=== PATIENT | female | born 1980 | race African-American/Black ===

== ENCOUNTER 2017-04-26 09:55 | Emergency (ER) | payer SELFPAY ==
[2017-04-26] MEDS ORDERED: Acetaminophen 500 MG TAB ONE (11:57)
[2017-04-26 12:25] LABS: Bilirubin Negative (Negative); Blood, Urine Negative (Negative); Clarity CLOUDY (Clear); Glucose, Urine (Dipstick) Negative (Negative); Leukocyte Negative (Negative); Nitrite Positive (Negative); Protein, Urine (Dipstick) Negative (Neg-Trace); Specific Gravity, Urine 1.025 (1.002-1.036); Urobilinogen 0.2 mg/dL (0.2-1.0)
[2017-04-26 12:26] LABS: Bacteria/HPF 4+ HPF (None Seen); Hyaline Casts/LPF 4-6 HYALINE CAST LPF (0-3 Hyaline); Pathc Cast-AUWi Flag 1.01 (0-2.49); RBC/HPF 0-3 HPF (0-3); WBC/HPF 0-3 HPF (0-3)
[2017-04-26 12:35] LABS: Pregnancy Test - Urine (BHCG) Negative (Negative); Pregu Control Background? CLEAR/WHITE (CLR/WHITE); Pregu Control Bar Appear? YES (CONTROL BAR); Specific Gravity 1.025 (1.002-1.036)
[2017-04-26 12:44] LABS: Renal Epithelial 0-3 HPF (0-3); Transitional Epithelial 0-3 HPF (0-3)
== END 2017-04-26 13:16 | disposition home or self-care (01) ==
LOC: ERS 09:55
DX: N39.0 Urinary tract infection, site not specified (principal); I10 Essential (primary) hypertension; K21.9 Gastro-esophageal reflux disease without esophagitis; Z87.891 Personal history of nicotine dependence; F32.9 Major depressive disorder, single episode, unspecified
CPT/HCPCS: 81003; 81015; 81025; 99283

== ENCOUNTER 2017-05-28 20:49 | Emergency (ER) | payer SELFPAY ==
[~2017-05-28 20:49] MED LIST: ISOVUE-370 76%-LOCM 1 ML ONE; Iopamidol 370 76% 50 ML VIAL FS ONE
[2017-05-28 21:33] LABS: Band 19 % (5-11); Hemoglobin 11.3 g/dL (12.0-16.0); Lymphocytes 13 % (21-51); MDiff Complete? YES; Mean Corpuscular HGB CONC 32.5 g/dL (32.0-36.0); Mean Corpuscular Hemoglobin 29.6 pg (27.0-31.0); Mean Corpuscular Volume 91.1 fl (81.0-99.0); Mean Platelet Volume 6.4 fL (7.4-10.4); Monocytes 5 % (0-10); Neutrophil 63 % (42-75); PLT Morphology Comment Appears Adequate; Platelet Count 233 thou/uL (130-400); RBC Distribution Width 12.4 % (11.5-14.5); Red Blood Cell (RBC) Count 3.81 mill/uL (4.20-5.40); White Blood Cell (WBC) Count 17.8 thou/uL (4.8-10.8)
--- NOTE | 2017-05-28 21:38 | RAD ---
CHEST ONE VIEW: HISTORY: Abdomen and chest pain. COMPARISON: 05/30/2012 and 11/26/2015 FINDINGS: Redemonstration of increased opacification in the right paratracheal region, similar to the previous examination. Stable configuration of the cardiac silhouette. Stable hyperinflation with what are presumed to be chronic changes. Possible right lower lobe infilt rate. No pneumothorax or osseous abnormalities. IMPRESSION: Possible right lower lobe infiltrate. Normal attenuation noted in the right paratracheal region otilia esponds to an enlarged esophagus, which has been demonstrated on a CT from 10/21/2013. POS: [facility]
[2017-05-28 21:40] LABS: ALT (SGPT) 16 U/L (8-55); AST (SGOT) 18 U/L (5-34); Albumin 3.8 g/dL (3.5-5.0); Alkaline Phosphatase 56 U/L (40-150); Anion Gap 11 mmol/L (10-20); BUN (Urea Nitrogen) 11 mg/dL (7.0-18.7); Bilirubin, Total 0.5 mg/dL (0.2-1.2); Calc. Creatinine Clearance 0 mL/min (70-130); Calcium 8.5 mg/dL (7.8-10.44); Carbon Dioxide 25 mmol/L (22-29); Chloride 106 mmol/L (98-107); Estimated GFR-MDRD Greater than 90; Globulin 3.7 g/dL (2.4-3.5); Glucose 96 mg/dL (70-105); Potassium 3.8 mmol/L (3.5-5.1); Protein, Total 7.5 g/dL (6.0-8.3); Sodium 138 mmol/L (136-145)
[2017-05-28 21:45] LABS: CKMB 0.8 ng/mL (0-6.6); Troponin I Less than 0.010 ng/mL (< 0.028)
[2017-05-28 23:15] LABS: BHCG - Serum Negative (NEGATIVE); Pregs Control Background? CLEAR/WHITE (CLR/WHITE); Pregs Control Bar Appear? YES (CONTROL BAR)
--- NOTE | 2017-05-29 | CT ---
ABDOMEN CT WITH CONTRAST: PELVIS CT WITH CONTRAST: HISTORY: Chest pain. Right upper quadrant pain. Elevated white blood cell count. COMPARISON: 03/19/2012 TECHNIQUE: An abdomen CT and a pelvis CT is performed with IV and oral contrast. Coronal reformatted images are submitted for interpretation. FINDINGS: ABDOMEN: Redemonstration of atelectasis adjacent to an extremely dilated descending thoracic aorta. Additional patchy interstitial opacities in the right lung base are present and are nonspecific. Th e possibility of an infiltrate is raised. Heart size is normal. No pericardial effusion. The visua lized aorta is unremarkable. Portal vein is patent. The liver, spleen, pancreas, and adrenal glands have appropriate enhancement. Symmetric enhancement of the kidneys. Bilaterally, no obstructive uropathy. Decreased intraabdominal fat limits evaluation for inflammatory change. No definite mesenteric mass, lymphadenopathy, free air, or free fluid. The gastric mucosa, the duodenum, and multiple normal caliber small bowel loops are noted. The ileocecal junction is normal. A partially visualized appendix is unremarkable. PELVIS: The uterus and adnexal structures are unremarkable. Possible left ovarian cyst. Pelvic ult rasound is clinically warranted. The urinary bladder is slightly prominent. Correlate for cystitis. A trace amount of fluid in the pelvis is suggested. No pelvic mass, lymphadenopathy, or free air. The previously noted ventral abdominal wall hernia is present, containing only mesenteric fat. No lytic or blastic lesions in the osseous structures. IMPRESSION: 1. Possible right lower lobe infiltrate. Continue surveillance. 2. Persistent dilatation of the descending thoracic aorta. 3. No evidence of bowel obstruction. 4. Suggestion of a partially visualized normal caliber appendix. 5. Umbilical hernia, containing mesenteric fat. 6. Prominent left ovary. Pelvic ultrasound, if clinically warranted. 7. Nonspecific mild urinary bladder mucosal prominence. POS: [facility]
[2017-05-29] MEDS ORDERED: Azithromycin 250 MG TAB ONE (00:14)
== END 2017-05-29 00:25 | disposition home or self-care (01) ==
LOC: ERS 20:49
DX: J18.9 Pneumonia, unspecified organism (principal); K22.8 Other specified diseases of esophagus; K43.9 Ventral hernia without obstruction or gangrene; I10 Essential (primary) hypertension; K21.9 Gastro-esophageal reflux disease without esophagitis; F17.210 Nicotine dependence, cigarettes, uncomplicated; F32.9 Major depressive disorder, single episode, unspecified
CPT/HCPCS: 71045; 74177; 80053; 82553; 83690; 84484; 84703; 85025; 93005

== ENCOUNTER 2017-11-10 18:53 | Emergency (ER) | payer SELFPAY ==
[~2017-11-10 18:53] MED LIST changes: -Iopamidol 370 76% 50 ML VIAL FS ONE
[2017-11-10 19:28] LABS: Bilirubin Negative (Negative); Blood, Urine Negative (Negative); Clarity CLEAR (Clear); Glucose, Urine (Dipstick) Negative (Negative); Leukocyte Negative (Negative); Nitrite Negative (Negative); Protein, Urine (Dipstick) Negative (Neg-Trace); Specific Gravity, Urine 1.009 (1.002-1.036)
[2017-11-10 19:32] LABS: Pregnancy Test - Urine (BHCG) Negative (Negative); Pregu Control Background? CLEAR/WHITE (CLR/WHITE); Pregu Control Bar Appear? YES (CONTROL BAR); Specific Gravity 1.009 (1.002-1.036)
[2017-11-10 20:12] LABS: Hemoglobin 13.4 g/dL (12.0-16.0); Mean Corpuscular Hemoglobin 30.8 pg (27.0-31.0); Mean Corpuscular Volume 93.4 fL (78.0-98.0); Mean Platelet Volume 6.4 fL (7.4-10.4); Platelet Count 309 thou/uL (130-400); RBC Distribution Width 11.8 % (11.5-14.5); Red Blood Cell (RBC) Count 4.35 mill/uL (4.20-5.40); White Blood Cell (WBC) Count 22.9 thou/uL (4.8-10.8)
[2017-11-10] MEDS ORDERED: Ketorolac Tromethamine 30 MG/ML VIAL ONE (20:23)
[2017-11-10] MEDS ORDERED: Ondansetron HCl/PF 4 MG/2 ML Vial ONE ×2 (20:23→20:33)
[2017-11-10 20:26] LABS: Band 4 % (5-11); Lymphocytes 11 % (21-51); MDiff Complete? YES; Monocytes 8 % (0-10); Neutrophil 76 % (42-75); PLT Morphology Comment Appears Adequate; RBC Morphology Normal
[2017-11-10 20:28] LABS: ALT (SGPT) 29 U/L (8-55); AST (SGOT) 29 U/L (5-34); Albumin 3.6 g/dL (3.5-5.0); Alkaline Phosphatase 60 U/L (40-150); Anion Gap 17 mmol/L (10-20); BUN (Urea Nitrogen) 5 mg/dL (7.0-18.7); Bilirubin, Total 0.7 mg/dL (0.2-1.2); Calc. Creatinine Clearance 0 mL/min (70-130); Calcium 8.8 mg/dL (7.8-10.44); Carbon Dioxide 21 mmol/L (22-29); Chloride 107 mmol/L (98-107); Estimated GFR-MDRD Greater than 90; Globulin 3.4 g/dL (2.4-3.5); Glucose 105 mg/dL (70-105); Lipase 8 U/L (8-78); Potassium 4.1 mmol/L (3.5-5.1); Sodium 141 mmol/L (136-145)
--- NOTE | 2017-11-10 21:00 | CT ---
CT ABDOMEN AND PELVIS 11/10/17 COMPARISON: 05/28/17 HISTORY: Right flank pain, burning with urination. TECHNIQUE: Serial axial CT imaging is obtained at 5 mm intervals from lung bases through pubic symphysis with IV contrast. Coronal reformatted imaging obtained. FINDINGS: the lack of oral contrast limits assessment of the bowel. The visualized thoracic esophagus is markedly dilated, thick walled and fluid filled. There is also d ebris within the dilated distal esophagus. These findings are stable when compared to prior CT examin ations dating back to 2013 and suspicious for achalasia. Imaged lung bases otherwise unremarkable. No free intraperitoneal air noted. The hepatic parenchyma is hypodense suggesting steatosis. The gallbladder, spleen, pancreas, adrenal glands and kidneys appear unremarkable. Evaluation of the bowel demonstrates no evidence for appendicitis or bowel obstruction. The vascular structures appear patent. No retroperitoneal, pelvic, or mesenteric lymphadenopathy is n oted. Review of the osseous structures demonstrates no acute findings. IMPRESSION: No acute findings. Chronic findings as described above. POS: [facility]
--- NOTE | 2017-11-10 23:46 | RAD ---
FRONTAL PORTABLE UPRIGHT CHEST RADIOGRAPH 11/10/17 COMPARISON: 05/28/17 HISTORY: Chest pain. FINDINGS: There is a stable distended esophagus with internal soft tissue density creating an area of increased density in the superior mediastinum to the right of midline, stable, consistent with the patient's h istory of achalasia. There is a suggestion of new nodularity within the right upper lobe, including a pulmonary nodule donavan suring up to 8 mm. No pneumothorax, pleural fluid, lobar consolidation, or alveolar edema. IMPRESSION: 1. Soft tissue density in the superior mediastinum to the right of midline consistent with the p atient's history of achalasia. 2. Findings suggesting new pulmonary nodularity within right upper lobe, including a nodule luis uring up to 8 mm. This was not seen on the prior chest radiograph. A chest CT is advised for further assessment. Code T POS: [facility]
== END 2017-11-10 23:54 | disposition home or self-care (01) ==
LOC: ERS 18:53
DX: J18.9 Pneumonia, unspecified organism (principal); K21.9 Gastro-esophageal reflux disease without esophagitis; F17.210 Nicotine dependence, cigarettes, uncomplicated; Z71.6 Tobacco abuse counseling
CPT/HCPCS: 36415; 71045; 74177; 80053; 81003; 81025; 83690; 85025; 87086; 96361; 96374; 96375; 99406; J1885; J2405; J7620

== ENCOUNTER 2018-01-20 22:17 | Emergency (ER) | payer SELFPAY ==
[2018-01-20] MEDS ORDERED: Adacel (T-DAP) 0.5 ML SYRINGE ONE (22:23)
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
[2018-01-21] MEDS ORDERED: Bacitracin Zinc 1 Packet ONE (00:33)
== END 2018-01-21 00:51 | disposition home or self-care (01) ==
LOC: ERS 22:17
DX: S01.81XA Laceration without foreign body of other part of head, initial encounter (principal); I10 Essential (primary) hypertension; K21.9 Gastro-esophageal reflux disease without esophagitis; F32.9 Major depressive disorder, single episode, unspecified; F17.210 Nicotine dependence, cigarettes, uncomplicated; Z23 Encounter for immunization; Z79.51 Long term (current) use of inhaled steroids; Y00.XXXA Assault by blunt object, initial encounter
CPT/HCPCS: 12013; 70450; 70486; 90471; 90715

== ENCOUNTER 2018-02-02 09:43 | Emergency (ER) | payer SELFPAY | END 2018-02-02 10:04 | disposition home or self-care (01) | LOC: ERS 09:43 | DX: S01.112D Laceration without foreign body of left eyelid and periocular area, subsequent encounter (principal); K21.9 Gastro-esophageal reflux disease without esophagitis; F17.210 Nicotine dependence, cigarettes, uncomplicated ==

== ENCOUNTER 2018-04-16 15:23 | Emergency (ER) | payer SELFPAY ==
--- NOTE | 2018-04-16 16:08 | RAD ---
RADIOGRAPH CHEST 2 VIEWS: 04/16/2018 HISTORY: A 37-year-old female with cough, dyspnea, and wheezing. FINDINGS: There is no air space density, pulmonary edema, pleural effusion, pneumothorax, or cardiomegaly. The re is a large paramediastinal mass, extending from the cervicothoracic junction to the level of the r ight hemidiaphragm, consistent with severely dilated esophagus, as demonstrated on previous CTs. The re is no significant interval change. IMPRESSION: 1. No acute cardiopulmonary findings. 2. Evidence of achalasia. 3. No significant interval change since 11/10/2017. jojo [] POS: [facility]
[2018-04-16] MEDS ORDERED: predniSONE 20 MG TAB ONE (17:07)
[2018-04-16 17:35] LABS: Bilirubin Negative (Negative); Blood, Urine Negative (Negative); Clarity CLEAR (Clear); Glucose, Urine (Dipstick) Negative (Negative); Leukocyte Negative (Negative); Nitrite Negative (Negative); Protein, Urine (Dipstick) Negative (Neg-Trace); Specific Gravity, Urine 1.024 (1.002-1.036); pH, Urine 6.5 (5.0-9.0)
[2018-04-16 17:37] LABS: Pregnancy Test - Urine (BHCG) Negative (Negative); Pregu Control Background? CLEAR/WHITE (CLR/WHITE); Pregu Control Bar Appear? YES (CONTROL BAR); Specific Gravity 1.024 (1.002-1.036)
[2018-04-19 01:20] LABS: Chlamydia by PCR Not Detected (NotDetected); GC by PCR Not Detected (NotDetected)
== END 2018-04-16 18:09 | disposition home or self-care (01) ==
LOC: ERS 15:23
DX: J45.901 Unspecified asthma with (acute) exacerbation (principal); K21.9 Gastro-esophageal reflux disease without esophagitis; I10 Essential (primary) hypertension; F32.9 Major depressive disorder, single episode, unspecified; F17.210 Nicotine dependence, cigarettes, uncomplicated
CPT/HCPCS: 71046; 81003; 81025; 87480; 87491; 87510; 87591; 87660; 94640; J7620

== ENCOUNTER 2018-10-16 17:09 | Emergency (ER) | payer MEDICAID, SELFPAY ==
--- NOTE | 2018-10-16 17:45 | RAD ---
Radiograph right hip 2 views: HISTORY: 37-year-old female with acute traumatic right hip pain after fall FINDINGS: No fracture identified. No dislocation. No degenerative changes of the right hip joint. IMPRESSION: Negative
== END 2018-10-16 18:10 | disposition home or self-care (01) ==
LOC: ERS 17:09
DX: S76.011A Strain of muscle, fascia and tendon of right hip, initial encounter (principal); I10 Essential (primary) hypertension; F32.9 Major depressive disorder, single episode, unspecified; F17.210 Nicotine dependence, cigarettes, uncomplicated; K21.9 Gastro-esophageal reflux disease without esophagitis; Z79.51 Long term (current) use of inhaled steroids; W18.30XA Fall on same level, unspecified, initial encounter

== ENCOUNTER 2019-08-30 10:01 | Emergency (ER) | payer OTHER, SELFPAY ==
[2019-08-30 10:40] LABS: #Basophils 0.1 thou/uL (0.0-0.2); #Eosinphils 0.1 thou/uL (0.0-0.7); #Lymphocytes 0.9 thou/uL (1.20-3.40); #Neutrophils 15.4 thou/uL (1.40-6.50); %Basophils 0.5 % (0.0-1.0); %Eosinophils 0.5 % (0.0-10.0); %Lymphocytes 5.2 % (21.0-51.0); %Monocytes 5.6 % (0.0-10.0); %Neutrophils 88.3 % (42.0-75.0); Hemoglobin 13.2 g/dL (12.0-16.0); Mean Corpuscular HGB CONC 32.7 g/dL (32.0-36.0); Mean Corpuscular Hemoglobin 30.5 pg (27.0-31.0); Mean Corpuscular Volume 93.4 fL (78.0-98.0); Mean Platelet Volume 7.1 fL (7.4-10.4); Platelet Count 254 thou/uL (130-400); RBC Distribution Width 12.4 % (11.5-14.5); Red Blood Cell (RBC) Count 4.31 mill/uL (4.20-5.40); White Blood Cell (WBC) Count 17.5 thou/uL (4.8-10.8)
[2019-08-30 10:51] LABS: ALT (SGPT) 26 U/L (8-55); AST (SGOT) 30 U/L (5-34); Albumin 4.2 g/dL (3.5-5.0); Alkaline Phosphatase 79 U/L (40-110); Anion Gap 17 mmol/L (10-20); BUN (Urea Nitrogen) 6 mg/dL (7.0-18.7); Bilirubin, Total 0.4 mg/dL (0.2-1.2); CK (CPK) 173 U/L (29-168); Calc. Creatinine Clearance 0 mL/min (70-130); Calcium 8.8 mg/dL (7.8-10.44); Carbon Dioxide 19 mmol/L (22-29); Chloride 105 mmol/L (98-107); Estimated GFR-MDRD Greater than 90; Globulin 4.1 g/dL (2.4-3.5); Glucose 70 mg/dL (70-105); Lipase 8 U/L (8-78); Potassium 4.1 mmol/L (3.5-5.1); Protein, Total 8.3 g/dL (6.0-8.3); Sodium 137 mmol/L (136-145)
[2019-08-30] MEDS ORDERED: predniSONE 20 MG TAB ONE (11:19)
[2019-08-30] MEDS ORDERED: Ketorolac Tromethamine 30 MG/ML VIAL ONE (11:19)
[2019-08-30] MEDS ORDERED: Acetaminophen/Codeine 30-300mg Tablet ONE (11:19)
--- NOTE | 2019-08-30 11:36 | RAD ---
PORTABLE CHEST: HISTORY: Chest and back pain x 2 days. COMPARISON: A 11/10/2017 and 04/16/2018 exam. FINDINGS: Heart size is within normal limits. Right paratracheal density is similar to the previous exam. Thi s was evidently a dilated esophagus per previous reports. There is an infiltrative process in the ri ght upper lobe that has developed. IMPRESSION: Right upper lobe infiltrate. This could potentially be on the basis of aspiration given the dilated esophagus. POS: [facility]
[2019-08-31 12:20] LABS: SARS-CoV-2 MS2 Positive; SARS-CoV-2 N Gene Negative; SARS-CoV-2 S Gene Negative; SARS-CoV-2 by NAA Not Detected (NotDetected); SARS-CoV-2 orf1ab Negative
== END 2019-08-30 12:16 | disposition home or self-care (01) ==
LOC: ERS 10:01
DX: J18.9 Pneumonia, unspecified organism (principal); Z20.828 Contact with and (suspected) exposure to other viral communicable diseases; K21.9 Gastro-esophageal reflux disease without esophagitis; I10 Essential (primary) hypertension; F31.9 Bipolar disorder, unspecified; F17.210 Nicotine dependence, cigarettes, uncomplicated; Z79.51 Long term (current) use of inhaled steroids
CPT/HCPCS: 71045; 80053; 82550; 83690; 84484; 85025; 87635; 93005; 96374; J1885; J7512; U0003

== ENCOUNTER 2020-03-12 11:23 | Emergency (ER) | payer OTHER, SELFPAY ==
[2020-03-12 12:02] LABS: #Eosinphils 0.3 thou/uL (0.0-0.7); #Lymphocytes 1.4 thou/uL (1.20-3.40); #Neutrophils 9.7 thou/uL (1.40-6.50); %Basophils 0.3 % (0.0-1.0); %Eosinophils 2.7 % (0.0-10.0); %Monocytes 8.2 % (0.0-10.0); %Neutrophils 77.8 % (42.0-75.0); Hemoglobin 14.6 g/dL (12.0-16.0); Mean Corpuscular HGB CONC 32.4 g/dL (32.0-36.0); Mean Corpuscular Volume 95.6 fL (78.0-98.0); Platelet Count 211 thou/uL (130-400); RBC Distribution Width 12.4 % (11.5-14.5); White Blood Cell (WBC) Count 12.5 thou/uL (4.8-10.8)
--- NOTE | 2020-03-12 12:16 | RAD ---
EXAM: CHEST ONE VIEW HISTORY: Left-sided chest pain. COMPARISON: 08/30/2019 FINDINGS: There is a right paramediastinal area of soft tissue density extending from the region of the right l joanna apex to the right lung base which is seen on prior exam as well as a study in 2018. A prior CT thorax on 10/31/2013 demonstrated a dilated esophagus which likely accounts for this finding. Cardiac silhouette and pulmonary vasculature are within normal limits. There has been interval improvement in parenchymal airspace opacity in the right midlung zone compared to prior study with minimal linear residual density seen which may be related to residual scarring. Lungs otherwise appear clear without consolidation or pleural fluid. No other interval change IMPRESSION: 1. Improvement in right upper lobe parenchymal airspace opacity likely related to resolution of pneum onitis. Minimal linear densities persist which may be related to minimal residual scarring. 2. Right paramediastinal area of increased density extending from the right lung apex to the right bonny ng base with gas density seen in the upper portion of this structure. This was shown to represent dilated esophagus on prior CT thorax.
[2020-03-12 12:25] LABS: ALT (SGPT) 13 U/L (8-55); AST (SGOT) 28 U/L (5-34); Albumin 3.4 g/dL (3.5-5.0); Alkaline Phosphatase 63 U/L (40-110); Anion Gap 13 mmol/L (10-20); BUN (Urea Nitrogen) 4 mg/dL (7.0-18.7); Bilirubin, Total 0.2 mg/dL (0.2-1.2); CK (CPK) 190 U/L (29-168); Calc. Creatinine Clearance 0 mL/min (70-130); Carbon Dioxide 25 mmol/L (22-29); Chloride 108 mmol/L (98-107); Glucose 111 mg/dL (70-105); Potassium 3.9 mmol/L (3.5-5.1); Protein, Total 6.4 g/dL (6.0-8.3); Sodium 142 mmol/L (136-145)
[2020-03-12] MEDS ORDERED: Ondansetron PF 4 MG/2 ML Vial ONE (13:28)
[2020-03-12] MEDS ORDERED: Acetaminophen 500 MG TAB ONE (14:53)
[2020-03-12] MEDS ORDERED: Aspirin Chewable 81 MG TAB ONE (14:53)
[2020-03-12 15:02] LABS: Troponin I 0.019 ng/mL (< 0.028)
== END 2020-03-12 15:45 | disposition home or self-care (01) ==
LOC: ERS 11:23
DX: R07.89 Other chest pain (principal); K21.9 Gastro-esophageal reflux disease without esophagitis; I10 Essential (primary) hypertension; J45.909 Unspecified asthma, uncomplicated; F17.210 Nicotine dependence, cigarettes, uncomplicated
CPT/HCPCS: 36415; 71045; 80053; 82550; 84484; 85025; 93005; 96374; J2405

== ENCOUNTER 2020-05-25 12:27 | Outpatient (CLI) | payer MEDICAID | END 2020-05-25 12:28 | disposition home or self-care (01) | LOC: BICMAMMO 12:27 | PROVIDERS: ATTEND Nurse Practitioner Family | DX: Z12.31 Encounter for screening mammogram for malignant neoplasm of breast (principal); Z80.3 Family history of malignant neoplasm of breast | CPT/HCPCS: 77067 ==

== ENCOUNTER 2020-12-17 07:14 | Emergency (ER) | payer MEDICAID, SELFPAY ==
[2020-12-17] MEDS ORDERED: Acetaminophen 500 MG TAB ONE (08:25)
[2020-12-17] MEDS ORDERED: Ketorolac Tromethamine 30 MG/ML VIAL ONE (08:25)
[2020-12-17] MEDS ORDERED: Morphine 4 MG/ML VIAL ONE (08:25)
[2020-12-17 09:04] LABS: Bilirubin Negative (Negative); Blood, Urine Negative (Negative); Clarity Clear (Clear); Glucose, Urine (Dipstick) Normal (Negative); Ketone, Urine Negative (Negative); Leukocyte Negative Leu/uL (Negative); Nitrite Negative (Negative); Protein, Urine (Dipstick) 20 mg/dL (Neg-Trace); Specific Gravity, Urine 1.028 (1.002-1.036)
[2020-12-17 09:05] LABS: Pregnancy Test - Urine (BHCG) Negative (Negative); Pregu Control Background? CLEAR/WHITE (CLR/WHITE); Pregu Control Bar Appear? YES (CONTROL BAR); Specific Gravity 1.025 (1.002-1.036)
[2020-12-17 09:15] LABS: ALT (SGPT) 17 U/L (8-55); AST (SGOT) 28 U/L (5-34); Albumin 3.6 g/dL (3.5-5.0); Alkaline Phosphatase 69 U/L (40-110); Anion Gap 10 mmol/L (10-20); BUN (Urea Nitrogen) 10 mg/dL (7.0-18.7); Bilirubin, Total Less than 0.2 mg/dL (0.2-1.2); Calc. Creatinine Clearance 0 mL/min (70-130); Calcium 8.5 mg/dL (7.8-10.44); Carbon Dioxide 26 mmol/L (22-29); Chloride 106 mmol/L (98-107); Globulin 3.5 g/dL (2.4-3.5); Glucose 85 mg/dL (70-105); Potassium 4.4 mmol/L (3.5-5.1); Protein, Total 7.1 g/dL (6.0-8.3); Sodium 138 mmol/L (136-145)
[2020-12-17 09:38] LABS: Band 2 % (5-11); Eosinophils 9 % (0-10); Hemoglobin 11.5 g/dL (12.0-16.0); Lymphocytes 25 % (21-51); MDiff Complete? YES; Mean Corpuscular HGB CONC 32.1 g/dL (32.0-36.0); Mean Corpuscular Volume 96.7 fL (78.0-98.0); Mean Platelet Volume 6.9 fL (7.4-10.4); Monocytes 12 % (0-10); Neutrophil 47 % (42-75); Platelet Count 267 thou/uL (130-400); Platelet Morphology Comment Appears Adequate; Polychromasia SLIGHT = 2-3 cells (100X) (0-2/hpf); RBC Distribution Width 11.5 % (11.5-14.5); Reactive Lymphocytes 5 % (0-10); White Blood Cell (WBC) Count 4.8 thou/uL (4.8-10.8)
[2020-12-17] MEDS ORDERED: Iopamidol-370 76% 500 ML 1 ML ONE (10:09)
== END 2020-12-17 11:10 | disposition home or self-care (01) ==
LOC: ERS 07:14
DX: R10.31 Right lower quadrant pain (principal); K21.9 Gastro-esophageal reflux disease without esophagitis; I10 Essential (primary) hypertension; J45.909 Unspecified asthma, uncomplicated; F17.210 Nicotine dependence, cigarettes, uncomplicated
CPT/HCPCS: 36415; 74177; 80053; 81003; 81025; 85025; 96374; 96375; J1885; J2270; Q9967

== ENCOUNTER 2021-02-28 16:38 | Emergency (ER) | payer SELFPAY ==
[2021-03-01 13:08] LABS: SARS-CoV-2 PCR by NAA Not Detected (NotDetected)
== END 2021-02-28 17:40 | disposition home or self-care (01) ==
LOC: ERS 16:38
DX: J32.9 Chronic sinusitis, unspecified (principal); K21.9 Gastro-esophageal reflux disease without esophagitis; I10 Essential (primary) hypertension; J45.909 Unspecified asthma, uncomplicated; F17.210 Nicotine dependence, cigarettes, uncomplicated; Z20.822 Contact with and (suspected) exposure to COVID-19
CPT/HCPCS: 99283; U0003; U0005

== ENCOUNTER 2022-03-03 10:22 | Emergency (ER) | payer SELFPAY ==
[2022-03-03] MEDS ORDERED: Ketorolac Tromethamine 30 MG/ML VIAL ONE (11:02)
[2022-03-03 11:25] LABS: Bilirubin Negative (Negative); Blood, Urine Negative (Negative); Clarity Clear (Clear); Glucose, Urine (Dipstick) Normal (Negative); Ketone, Urine Negative (Negative); Leukocyte Negative Leu/uL (Negative); Nitrite Negative (Negative); Protein, Urine (Dipstick) 20 mg/dL (Neg-Trace); Specific Gravity, Urine 1.034 (1.002-1.036); Urobilinogen Normal mg/dL (Less than 2); pH, Urine 5.5 (5.0-9.0)
[2022-03-03 11:26] LABS: Pregnancy Test - Urine (BHCG) Negative (Negative); Pregu Control Background? CLEAR/WHITE (CLR/WHITE); Pregu Control Bar Appear? YES (CONTROL BAR); Specific Gravity 1.034 (1.002-1.036)
== END 2022-03-03 11:49 | disposition home or self-care (01) ==
LOC: ERS 10:22
DX: R10.31 Right lower quadrant pain (principal); K21.9 Gastro-esophageal reflux disease without esophagitis; I10 Essential (primary) hypertension; F17.210 Nicotine dependence, cigarettes, uncomplicated
CPT/HCPCS: 81003; 81025; 96372; 99283; J1885

== ENCOUNTER 2023-02-15 20:43 | Emergency (ER) | payer SELFPAY ==
[2023-02-15] MEDS ORDERED: Oxymetazoline HCl 0.05% (30 ML BOT) ONE (21:26)
== END 2023-02-15 22:03 | disposition short-term general hospital (02) ==
LOC: ERS 20:43
DX: R04.0 Epistaxis (principal); I10 Essential (primary) hypertension; F17.210 Nicotine dependence, cigarettes, uncomplicated; Z79.899 Other long term (current) drug therapy
CPT/HCPCS: 99283

== ENCOUNTER 2023-11-29 17:32 | Emergency (ER) | payer SELFPAY | END 2023-11-29 21:05 | disposition home or self-care (01) | LOC: ERS 17:32 | DX: K04.7 Periapical abscess without sinus (principal); I10 Essential (primary) hypertension; E03.9 Hypothyroidism, unspecified; F17.210 Nicotine dependence, cigarettes, uncomplicated; Z79.899 Other long term (current) drug therapy | CPT/HCPCS: 99282 ==

== ENCOUNTER 2024-10-24 13:43 | Emergency (ER) | payer SELFPAY ==
[2024-10-24 14:16] LABS: #Basophils 0.04 10x3/uL (0.0-0.2); #Eosinophils 0.04 10x3/uL (0.0-0.7); #Monocytes 1.17 10x3/uL (0.11-0.59); #Neutrophils 16.91 10x3/uL (1.40-6.50); %Basophils 0.2 % (0.0-1.0); %Eosinophils 0.2 % (0.0-10.0); %Lymphocytes 5.6 % (21.0-51.0); %Monocytes 6.0 % (0.0-10.0); %Neutrophils 87.5 % (42.0-75.0); Hematocrit 36.9 % (36.0-47.0); Hemoglobin 12.2 g/dL (12.0-16.0); Mean Corpuscular Hemoglobin 29.7 pg (27.0-31.0); Mean Corpuscular Volume 89.8 fL (78.0-98.0); Platelet Count 248 10x3/uL (130-400); Red Blood Cell (RBC) Count 4.11 mill/uL (4.20-5.40); White Blood Cell (WBC) Count 19.34 10x3/uL (4.8-10.8)
[2024-10-24] MEDS ORDERED: Ketorolac Tromethamine 30 MG (1 mL) VIAL ONE (14:28)
[2024-10-24 14:29] LABS: INR-International Normal Ratio 1.0; PTT 29.1 sec (22.9-36.1); Prothrombin Time 13.5 sec (12.0-14.7)
[2024-10-24] MEDS ORDERED: Famotidine/PF 20 mg/2ml Vial ONE (14:44)
[2024-10-24] MEDS ORDERED: Pantoprazole 40 MG VIAL ONE (14:44)
[2024-10-24] MEDS ORDERED: cefTRIAXone (ROCEPHIN) 2 GM VIAL ONE (14:44)
[2024-10-24 14:45] LABS: ALT (SGPT) 22 U/L (Less than 34); AST (SGOT) 39 U/L (11-34); Albumin 3.5 g/dL (3.1-4.5); Alkaline Phosphatase 62 U/L (40-110); Anion Gap 14 mmol/L (10-20); BUN (Urea Nitrogen) 7 mg/dL (7.0-18.7); Bilirubin, Total 0.3 mg/dL (0.3-1.2); Calc. Creatinine Clearance 0 mL/min (70-130); Calcium 8.8 mg/dL (7.8-10.44); Carbon Dioxide 22 mmol/L (22-29); Chloride 107 mmol/L (98-107); Globulin 3.9 g/dL (2.4-3.5); Glucose 117 mg/dL (70-105); Potassium 3.7 mmol/L (3.5-5.1); Sodium 139 mmol/L (136-145)
[2024-10-24 14:52] LABS: BHCG - Serum Negative (NEGATIVE); Pregs Control Background? CLEAR/WHITE (CLR/WHITE); Pregs Control Bar Appear? YES (CONTROL BAR)
[2024-10-24] MEDS ORDERED: Iopamidol-370 76% 500 ML MDV (1 ML CHARGE) ONE (15:39)
[2024-10-24] MEDS ORDERED: Azithromycin 500 MG VIAL ONE (15:43)
[2024-10-24 17:12] LABS: Bacteria/HPF None Seen HPF (None Seen); CAUTI Indications for Culture Fever or rigors; Glucose, Urine (Dipstick) Normal (Negative); Leukocyte Negative Leu/uL (Negative); Protein, Urine (Dipstick) 50 mg/dL (Neg-Trace); RBC/HPF 0-3 HPF (0-3); Specific Gravity, Urine 1.033 (1.002-1.036); WBC/HPF 0-3 HPF (0-3)
[2024-10-24 17:14] LABS: Urine Culture Reflex No No
== END 2024-10-24 18:01 | disposition home or self-care (01) ==
LOC: ERS 13:43
DX: J69.0 Pneumonitis due to inhalation of food and vomit (principal); K21.9 Gastro-esophageal reflux disease without esophagitis; R04.2 Hemoptysis; I10 Essential (primary) hypertension; E03.9 Hypothyroidism, unspecified; F17.210 Nicotine dependence, cigarettes, uncomplicated
CPT/HCPCS: 71045; 71275; 80053; 81001; 83605; 84484; 84703; 85025; 85379; 85610; 85730; 87040; 87428; 93005; 96365; 96367; 96375; J0456; J0696; J1885; J2470